=== PATIENT | female | born 1995 | race Caucasian/White ===

== ENCOUNTER → 2017-10-02 15:24 | Observation (INO) ==
--- NOTE | 2017-10-02 11:30 | OB/GYN History & Physical ---
Date of Encounter: 10/02/17 Time of Encounter: 11:15 Assessment and Plan (1) 38 weeks gestation of Current visit: Yes Status: Acute Patient has a sick person in her house that has been confirmed to have the flu. - Rapid flu test. (2) Chest pain Current visit: Yes Status: Acute Patient has been c/o atypical chest pain symptoms throughout her . She denies any pain right now. Since her chest pain seems to come about when she lies on her side and is relieved by sitting up, it is most likely related to GERD. She also had reproducible chest pain with palpation which could also suggest pain that is muscular in origin as well. Qualifiers: Chest pain type: unspecified Qualified Code(s): R07.9 - Chest pain, unspecified (3) Elevated blood pressure affecting in third trimester, antepartum Current visit: Yes Status: Acute Elevated BP at clinic (152/102 and at triage (162/83). - NST assessment. - Reevaluate BP after 4 hours. - Urine protein/creatinine. - CBC - Liver enzymes - Uric acid - UDS Lab work and BPs reviewed with Dr. Linda. Patient to be discharged home and follow up in office next weeks as scheduled. Patient given PIH precautions. History of Present Illness Chief complaint: Elevated BP HPI: Ms. Soni is a 22 year old female at 38 2/7 weeks gestation that presents for PIH evaluation. Patient was seen at the clinic earlier today and had an elevated BP of 152/102. She currently denies any BLUE but says that she had one earlier this morning that was relieved with tylenol. She currently denies any vision changes but says that she has been getting blurry vision intermittently for the past few months. She admits to irregular contractions last night, but denies any regular ones. Admits to good movement. She says that she has been getting intermittent chest pain as well that last a minute, sharp in nature , doesn't radiate, brought about by lying on her side, and is relieved when she sits up. She denies any vaginal fluid leakage or bleeding. She says that she had a fever yesterday, but denies a fever today. Her daughter at home was tested positive for the flu. She was nauseous and vomiting last night. She denies any dysuria or diarrhea. GBS: negative HIV Ag/Ab: non-reactive T. Pallidum Ab: negative Rubella Ab: positive Varicella Ab: positive HepBSAg: non-reactive Blood Type: A- Obstetrical History - Pregnancies : 2 Para: 1 Term: 1 : 0 Ab's: 0 Livin Medications and Allergies Albuterol Sulfate [Ventolin Hfa] 2 aerosol AER BID 10/02/17 [History] Budesonide/Formoterol 80/4.5 [Symbicort 80/4.5] 1 puff AER BID 10/02/17 [ History] Vit Calc,Iron,Folic [ Vitamins] 1 tab PO DAILY 10/02/17 [ History] 3 Allergy/AdvReac Type Severity Reaction Status Date / Time No Known Allergies Allergy Verified 10/02/17 12:16 Exam - Vital Signs Vital signs: BP: 162/83 HR: 88 FHR: 140 [place]: 66 - Constitutional Constitutional: well developed, well nourished, no acute distress, obese - Lungs Respiratory exam: CTAB - Cardiovascular Cardiovascular exam: RRR, +S1, +S2 - Abdomen Abdomen: Present: bowel sounds normal, gravid, non tender - Extremities Extremities exam: full ROM, normal capillary refill, normal inspection, radial pulses palpable and symmetrical Deep Tendon Reflex Grade: 2+ Normal - Comments Comments: Lower extremities: no pitting edema noting lower extremities bilaterally. Chest: reproducible chest pain on palpation. Results Result Diagrams: 10/02/17 11:35 10/02/17 11:35 All other labs normal. - VTE Reasons for not Prescribing Prophylaxis: Treatment not Indicated - Low risk for VTE - Attending Attestation I examined this patient and my medical decision-making was reviewed with the Resident Physician. I agree with the documented findings, disposition and treatment plan as described except to the extent set forth below. CAROLYNN Larry
[2017-10-02 11:50] LABS: Basophils % 0.2 %; Eosinophils # 0.1 K/mcL (0.0-0.6); Eosinophils % 0.5 %; Hematocrit 36.9 % (35.3-44.9); Hemoglobin 12.3 g/dL (11.5-15.4); Immature Granulocytes % 0.8 % (0-4); Lymphocytes # 0.8 K/mcL (0.6-4.6); Lymphocytes % 7.9 %; Mean Corpuscular HGB Conc 33.3 g/dL (31.6-35.5); Mean Corpuscular Hemoglobin 30.3 pg (28.0-33.3); Mean Corpuscular Volume 90.9 fL (83.0-100.0); Mean Platelet Volume 9.6 fL (9.4-12.4); Monocytes # 0.7 K/mcL (0.0-1.3); Monocytes % 6.8 %; Neutrophils # 8.5 K/mcL (1.6-8.9); Platelet Count 260 K/mcL (140-400); Red Blood Count 4.06 M/mcL (3.82-4.97); Red Cell Distribution Width 14.4 % (11.5-14.5); Segmented Neutrophils % 83.8 %
[2017-10-02 12:00] LABS: Alanine Aminotransferase 18 Units/L (0-55); Aspartate Amino Transferase 27 Units/L (5-34); BUN/Creatinine Ratio 17 (6-26); Blood Urea Nitrogen 9 mg/dL (7-20); Uric Acid 5.9 mg/dL (2.6-6.0); eGFR For African Americans > 60 (> 60); eGFR For Non-African Americans > 60 (> 60)
[2017-10-02 12:01] LABS: Lactate Dehydrogenase 258 Units/L (159-327)
[2017-10-02 12:25] LABS: Amphetamine Screen,Urine Negative ng/mL (Cutoff=1000); Barbiturate Screen,Urine Negative ng/mL (Cutoff=200); Benzodiazepines Screen,Urine Negative ng/mL (Cutoff=200); Cannabinoid Screen,Urine Negative ng/mL (Cutoff = 50); Cocaine Screen,Urine Negative ng/mL (Cutoff= 300); Opiate Screen,Urine Negative ng/mL (Cutoff=300); Phencyclidine Screen,Urine Negative ng/mL (Cutoff=25)
[2017-10-02 12:27] LABS: Protein/Creatinine Ratio,Urine 0.3 mg/mg (0-0.20)
--- NOTE | 2017-10-02 15:13 | Discharge Summary ---
Date of Encounter: 10/02/17 Time of Encounter: 15:13 - Discharge Diagnosis (1) 38 weeks gestation of Priority: Primary Status: Acute Comments: admitted for observation (2) Chest pain Priority: Secondary Status: Acute Qualifiers: Chest pain type: unspecified Qualified Code(s): R07.9 - Chest pain, unspecified (3) Elevated blood pressure affecting in third trimester, antepartum Priority: Secondary Status: Acute Comments: PIH labs WNL BPs WNL - Discharge Medications Home Medications: Albuterol Sulfate [Ventolin Hfa] 2 aerosol AER BID 10/02/17 [History] Budesonide/Formoterol 80/4.5 [Symbicort 80/4.5] 1 puff AER BID 10/02/17 [ History] Vit Calc,Iron,Folic [ Vitamins] 1 tab PO DAILY 10/02/17 [ History] Allergies/Adverse Reactions: 3 Allergy/AdvReac Type Severity Reaction Status Date / Time No Known Allergies Allergy Verified 10/02/17 12:16 Data Procedures and tests throughout hospitalization: Laboratory Tests 10/02/17 10/02/17 10/02/17 11:35 11:35 11:35 WBC 10.2 RBC 4.06 Hgb 12.3 Hct 36.9 MCV 90.9 MCH 30.3 MCHC 33.3 RDW 14.4 Plt Count 260 MPV 9.6 Immature Gran % 0.8 Seg Neutrophils % 83.8 Lymphocytes % 7.9 Monocytes % 6.8 Eosinophils % 0.5 Basophils % 0.2 Neutrophils # 8.5 Lymphocytes # 0.8 Monocytes # 0.7 Eosinophils # 0.1 Basophils # 0.0 BUN 9 Creatinine 0.54 L Est GFR ( Amer) > 60 Est GFR (Non-Af Amer) > 60 BUN/Creatinine Ratio 17 Uric Acid 5.9 AST 27 ALT 18 Lactate Dehydrogenase 258 Urine Creatinine Protein/Creatinin Ratio Urine Total Protein Urine Opiates Screen Negative Ur Barbiturates Screen Negative Ur Phencyclidine Scrn Negative Ur Amphetamines Screen Negative U Benzodiazepines Scrn Negative Urine Cocaine Screen Negative U Marijuana (THC) Screen Negative 10/02/17 11:35 WBC RBC Hgb Hct MCV MCH MCHC RDW Plt Count MPV Immature Gran % Seg Neutrophils % Lymphocytes % Monocytes % Eosinophils % Basophils % Neutrophils # Lymphocytes # Monocytes # Eosinophils # Basophils # BUN Creatinine Est GFR ( Amer) Est GFR (Non-Af Amer) BUN/Creatinine Ratio Uric Acid AST ALT Lactate Dehydrogenase Urine Creatinine 67 Protein/Creatinin Ratio 0.30 H Urine Total Protein 20 H Urine Opiates Screen Ur Barbiturates Screen Ur Phencyclidine Scrn Ur Amphetamines Screen U Benzodiazepines Scrn Urine Cocaine Screen U Marijuana (THC) Screen Labs on day of discharge: Labs from last 24 hours 10/02/17 10/02/17 10/02/17 11:35 11:35 11:35 WBC 10.2 RBC 4.06 Hgb 12.3 Hct 36.9 MCV 90.9 MCH 30.3 MCHC 33.3 RDW 14.4 Plt Count 260 MPV 9.6 Immature Gran % 0.8 Seg Neutrophils % 83.8 Lymphocytes % 7.9 Monocytes % 6.8 Eosinophils % 0.5 Basophils % 0.2 Neutrophils # 8.5 Lymphocytes # 0.8 Monocytes # 0.7 Eosinophils # 0.1 Basophils # 0.0 BUN 9 Creatinine 0.54 L Est GFR ( Amer) > 60 Est GFR (Non-Af Amer) > 60 BUN/Creatinine Ratio 17 Uric Acid 5.9 AST 27 ALT 18 Lactate Dehydrogenase 258 Urine Creatinine 67 Protein/Creatinin Ratio 0.30 H Urine Total Protein 20 H Urine Opiates Screen Ur Barbiturates Screen Ur Phencyclidine Scrn Ur Amphetamines Screen U Benzodiazepines Scrn Urine Cocaine Screen U Marijuana (THC) Screen 10/02/17 11:35 WBC RBC Hgb Hct MCV MCH MCHC RDW Plt Count MPV Immature Gran % Seg Neutrophils % Lymphocytes % Monocytes % Eosinophils % Basophils % Neutrophils # Lymphocytes # Monocytes # Eosinophils # Basophils # BUN Creatinine Est GFR ( Amer) Est GFR (Non-Af Amer) BUN/Creatinine Ratio Uric Acid AST ALT Lactate Dehydrogenase Urine Creatinine Protein/Creatinin Ratio Urine Total Protein Urine Opiates Screen Negative Ur Barbiturates Screen Negative Ur Phencyclidine Scrn Negative Ur Amphetamines Screen Negative U Benzodiazepines Scrn Negative Urine Cocaine Screen Negative U Marijuana (THC) Screen Negative Date of admission: 10/02/17 10:48 Discharging clinician: Salma Rojo Anticipated date of discharge: 10/02/17 - Patient Status Disposition: Home, Self-Care Condition: Good Functional capacity at discharge: independent ambulation - Discharge Instructions Follow Up With: Katja Moreira CNM [Advanced Practice Nurse] - - Diet and Activity Activity: increase activity as tolerated Diet: regular diet Hospital Course [employer] Time Attestation: Total time spent providing and/or coordinating discharge services: Time Spent: Less than 30 minutes Exam - Constitutional General appearance IM: A&O X 3, pleasant, answers questions appropriately - Other Additional findings: FHR 125 BPM moderate variability +15x15 accels no decels noted. Cat. 1 tracing. Irregular contractions noted. SBE /-3 - VTE Reasons for not Prescribing Prophylaxis: Treatment not Indicated - Low risk for VTE
== END | disposition home or self-care (01) ==
LOC: 1NENULAB
PROVIDERS: ADMIT Advanced Practice Midwife; ATTEND Advanced Practice Midwife

== ENCOUNTER 2017-10-07 23:30 | Inpatient (IN) ==
[2017-10-07 21:10] LABS: Amphetamine Screen,Urine Negative ng/mL (Cutoff=1000); Barbiturate Screen,Urine Negative ng/mL (Cutoff=200); Benzodiazepines Screen,Urine Negative ng/mL (Cutoff=200); Cannabinoid Screen,Urine Negative ng/mL (Cutoff = 50); Cocaine Screen,Urine Negative ng/mL (Cutoff= 300); Opiate Screen,Urine Negative ng/mL (Cutoff=300); Phencyclidine Screen,Urine Negative ng/mL (Cutoff=25)
[2017-10-07 21:15] LABS: Basophils % 0.3 %; Eosinophils # 0.1 K/mcL (0.0-0.6); Eosinophils % 1.2 %; Hematocrit 38.8 % (35.3-44.9); Hemoglobin 12.9 g/dL (11.5-15.4); Immature Granulocytes % 0.7 % (0-4); Lymphocytes # 2.2 K/mcL (0.6-4.6); Lymphocytes % 21.6 %; Mean Corpuscular HGB Conc 33.2 g/dL (31.6-35.5); Mean Corpuscular Hemoglobin 30.4 pg (28.0-33.3); Mean Corpuscular Volume 91.3 fL (83.0-100.0); Mean Platelet Volume 9.7 fL (9.4-12.4); Monocytes % 9.6 %; Neutrophils # 6.8 K/mcL (1.6-8.9); Platelet Count 325 K/mcL (140-400); Red Blood Count 4.25 M/mcL (3.82-4.97); Red Cell Distribution Width 13.5 % (11.5-14.5); Segmented Neutrophils % 66.6 %
[2017-10-07 21:28] LABS: Alanine Aminotransferase 23 Units/L (0-55); Aspartate Amino Transferase 24 Units/L (5-34); BUN/Creatinine Ratio 14 (6-26); Blood Urea Nitrogen 8 mg/dL (7-20); Lactate Dehydrogenase 224 Units/L (159-327); eGFR For African Americans > 60 (> 60); eGFR For Non-African Americans > 60 (> 60)
[2017-10-07 21:36] LABS: Bilirubin,Urine Negative (Negative); Blood,Urine Small (Negative); Clarity,Urine Clear (Clear); Color,Urine Yellow (Yellow); Glucose,Urine (UA) Normal (Normal); Ketones,Urine Negative (Negative); Leukocyte Esterase,Urine Negative (Negative); Nitrite,Urine Negative (Negative); Protein,Urine Negative (Neg-Trace); Specific Gravity,Urine 1.013 (1.010-1.025); Urobilinogen,Urine Normal (Normal)
[2017-10-07 21:37] LABS: Bacteria,Urine None Seen per hpf (None-Few); Hyaline Casts,Urine None Seen per lpf (None-Few); RBC,Urine 0-3 per hpf (0-3); Squamous Epithelial Cell,Urine Many per lpf (None-Few); WBC,Urine 0-3 per hpf (0-3)
[2017-10-07 22:14] LABS: Protein/Creatinine Ratio,Urine 0.26 mg/mg (0-0.20)
[~2017-10-07 23:30] MED LIST: *HR* Nalbuphine 20 MG/ML AMPUL IVP PRN; Famotidine 20 MG/2 ML VIAL IVP PRN; Naloxone 0.4 MG/ML INJ IVP PRN; Ondansetron 4 MG/2 ML VIAL IVP PRN; Ringers Solution, Lactated 1,000 ML IVC SCH
--- NOTE | 2017-10-07 23:53 | OB/GYN History & Physical ---
Date of Encounter: 10/08/17 Time of Encounter: 23:40 Assessment and Plan (1) 39 weeks gestation of Current visit: Yes Status: Acute Patient 3cm dilated upon presentation for PIH evaluation, 5cm at next cervical exam. -PIH labs WNL -Admit to Labor and Delivery -Epidural consultation -[place] -Anticipate History of Present Illness Chief complaint: Contractions HPI: Ms. Soni is a 22 year old female at 39 weeks presents to [facility] after taking blood pressure in [facility]. Patient reports blood pressures in the 160s over 90s. Upon presentation to labor and delivery, patient's PIH evaluation was found to be within normal limits. Patient was actively omer producing cervical changes. At that time, the decision was made to admit patient to labor and delivery. Patient denies any vaginal bleeding or fluid leaking. She denies any headaches, visual disturbance , or epigastric pain. She denies any nausea or vomiting. She does report painful contractions. Patient's has been complicated by chronic headaches for which she took [id number] magnesium. GBS negative A NEGATIVE/antibody screen negative HepB surface antigen HIV negative Treponema Pallidum Rubella Immune Varicella Immune Past Med Surg Social Fam HX - Past Medical History Attestation: Yes The following information was validated with the patient. Source: patient Medical history: asthma Psychiatric history: no psych history - Past Surgical History Surgical History: no surgical history - Social History Smoking Status: Never smoker Smokeless Tobacco Status: No Alcohol use: none Drug use: none - Family History Mother Adopted: No Living Status: Still Living Hx Family Cardiac Disorders: No Hx Family Respiratory Disorders: No Hx Family Cancer: No Hx Family GI Disorders: No Hx Family Genitourinary Disorders: No Hx Family Endocrine Disorder: No Hx Family Musculoskeletal Disorders: No Hx Family Neuromuscular Disorders: No Hx Family Neurologic Disorders: No Hx Family HEENT Disorders: No Hx Family Autoimmune Disorders: No Hx Family Reproductive Disorders: No Hx Family Psychosocial Disorders: No Hx Family Medical Disorders: No Obstetrical History - Pregnancies : 2 Para: 1 Term: 1 : 0 Ab's: 0 Livin Medications and Allergies Albuterol Sulfate [Ventolin Hfa] 2 aerosol AER BID 10/02/17 [History] Budesonide/Formoterol 80/4.5 [Symbicort 80/4.5] 1 puff AER BID 10/02/17 [ History] Vit Calc,Iron,Folic [ Vitamins] 1 tab PO DAILY 10/02/17 [ History] 3 Allergy/AdvReac Type Severity Reaction Status Date / Time No Known Allergies Allergy Verified 10/02/17 12:16 Review of System OB All systems PM: reviewed and no additional remarkable complaints except as stated - Cardiovascular Cardiovascular: no chest pain, no edema - Respiratory Respiratory: no cough, no dyspnea - Gastrointestinal Gastrointestinal: no abdominal pain - Genitourinary Genitourinary: no urinary urgency - Neurological Nerological: headache(s) Exam - Constitutional Constitutional: well developed, well nourished, no acute distress - HEENT HEENT: Normocephaly, Mucus Membranes Moist - Lungs Respiratory exam: CTAB - Cardiovascular Cardiovascular exam: RRR, +S1, +S2 - Abdomen Abdomen: Present: bowel sounds normal, non tender - Extremities Extremities exam: normal inspection, radial pulses palpable and symmetrical Deep Tendon Reflex Grade: 2+ Normal - Cervix Dilation: 5 Effacement: 70 Station: -1 - Uterus Uterus exam: Present: normal size - Comments Comments: FHT 130 bpm, moderate variability, 15x15 accelerations Results Result Diagrams: 10/07/17 21:00 10/07/17 21:00 Abnormal lab results Urine Blood Small (Negative) H 10/07/17 21:30 Ur Squamous Epith Cells Many per lpf (None-Few) H 10/07/17 21:30 Protein/Creatinin Ratio 0.26 mg/mg (0-0.20) H 10/07/17 20:30 All other labs normal. - VTE Reasons for not Prescribing Prophylaxis: Treatment not Indicated - Low risk for VTE - Attending Attestation I examined this patient and my medical decision-making was reviewed with the Resident Physician. I agree with the documented findings, disposition and treatment plan as described. Theresa Moreira CNM
[2017-10-08] MEDS ORDERED: *HR* Ropivacaine/PF 0.2% 10 ML AMPUL EP ONE (00:35)
[2017-10-08] MEDS ORDERED: Ringers Solution, Lactated 500 ML IVC ONE (00:35)
[2017-10-08] MEDS ORDERED: EPHEDrine 50 MG/ML VIAL IVP PRN (00:35)
--- NOTE | 2017-10-08 00:37 | Anesthesia Evaluation PreOp ---
Date of Encounter: 10/08/17 Time of Encounter: 00:30 - Past History Planned Operation: KATARZYNA Cardiac History: Denies any Significant Hx Pulmonary History: Asthma [employer]UTIONS ARCHITECT CONSULTANT History: Denies Any Significant HX Other Medical History: Denies Any Significant HX Anesthesia History: No Prior Anesthetic Complications, Past Anesthesia : Yes Alcohol Use: none Drug use: none Medications and Allergies Albuterol Sulfate [Ventolin Hfa] 2 aerosol AER BID 10/02/17 [History] Budesonide/Formoterol 80/4.5 [Symbicort 80/4.5] 1 puff AER BID 10/02/17 [ History] Vit Calc,Iron,Folic [ Vitamins] 1 tab PO DAILY 10/02/17 [ History] 3 Allergy/AdvReac Type Severity Reaction Status Date / Time No Known Allergies Allergy Verified 10/02/17 12:16 - Meds/Allergy Pre-op Review Medications Reviewed: Yes Allergies Reviewed: Yes Beta Blockers on Current Med List: No Anesthesia Results - Labs 10/07/17 21:00 10/07/17 21:00 Anesthesia Exam Height: 1.6m Weight: 98.4kg NPO (# of Hours): >6hr Pain Scale: 9 Pain Scale Used: Numeric (1 - 10) - HEENT Pupil (Motor): Pupils equal Mallampati: II Teeth: Missing Oral Opening: Greater than 3 - SOLUTIONS ARCHITECT CONSULTANT LOC: Oriented [employer]UTIONS ARCHITECT CONSULTANT Motor: Normal RUE, Normal LUE, Normal RLE, Normal LLE, Normal Face [employer] ARCHITECT CONSULTANT Sensory: Normal: RUE, LUE, RLE, LLE, Face - Cardiac Rhythm: Regular Murmur: None - Pulmonary Breath Sounds: bilateral Clear Respiratory Effort: Symmetrical Anesthesia Assess/Plan ASA Score: 2 Modified [place] Scale for Level of Consciousness: Cooperative, oriented, and tranquil Anesthetic Plan: Regional Monitoring Plan: Standard Monitors Recovery Plan: Other
[2017-10-08] MEDS ORDERED: *HR* Ropivacaine/PF 0.2% 10 ML AMPUL ONE (00:38)
[2017-10-08] MEDS ORDERED: Epidural Premix (fent/bupiv) 110 ML EP ONE ×2 (00:38→07:38)
[2017-10-08] MEDS ORDERED: Epidural Premix (fent/bupiv) 110 ML EP SCH (00:45)
--- NOTE | 2017-10-08 01:02 | Anesthesia Procedures ---
Date of Encounter: 10/08/17 Time of Encounter: 00:41 Procedures: Anesthesia - Epidural/Spinal Patient ID/Chart reviewed: Yes Patient examined: Yes OB Eval: : 2 OB Eval: Hx Para: 1 OB Eval: Dilated at (cm): 4 OB Eval: Contractions: Non-stressed pattern Consent Obtained: Yes Supplemental Oxygen: None/Room Air Site Prep: Aseptic Technique, Sterile prep and drape, 0.5% Chlorhexidine/Alcohol Patient position: upright Local Anesthetic: Lidocaine 1% Amount of Local Anesthetic used: 2 Touhy Needle Gauge: 18 Touhy Needle Depth (cm): 7 Catheter Depth at Skin (cm): 15 Test Dose (1.5% Lido + Epi): Volume given (mls): 3 Test Dose Result: Negative Loading Dose: Other: Ropivacaine 0.2% 9mL Loading Dose Administered: Thru Catheter Infusion Med: 0.125% Bupivacaine w/ 2 mcg/ml Fentanyl Infusion Rate (mls/hr): 14 (Bolus 5mL q15min;max 3/hr) Catheter Secured in Place: Tegaderm Interspace Used: L3-L4 Loss of Resistance (SHIRA): Yes Blood: No CSF: No Paresthesia: No Procedure: x1 attempt. Patient tolerated well. Vitals + FHT's: FHR and VSS throughout. See nursing documentation.
--- NOTE | 2017-10-08 02:51 | OB Labor Progress Note ---
Date of Encounter: 10/08/17 Time of Encounter: 02:49 Labor Progress Note - Subjective Subjective: Patient resting comfortably in bed with epidural in place. - Vital Signs Vital Signs: VSS; occasional increased blood pressure. Aymptomatic. PIH labs WNL - Cervix Cervix: 7-8/80/0 - Heart Tones Heart Tones: 140's category I tracing - [place]: Contractions every 2-4 minutes - Interventions Interventions: AROM for scant amount of light meconium stained fluid - Plan Plan: Continue routine labor management Pain is well controlled GBS negative Consider pitocin if needed for adequate contraction pattern or if not making cervical change Anticipate vaginal delivery POC per consult with Dr Craig
[2017-10-08] MEDS ORDERED: Oxytocin 20 units/ LR 1000 mL 20 UNIT/1,000 ML BAG IVC SCH ×2 (09:30→12:49)
--- NOTE | 2017-10-08 10:38 | OB/GYN Procedure Note ---
Delivery - Delivery Date: 10/08/17 Provider: Katja Moreira Intrapartum events: none Delivery induction: none Delivery augmentation: rupture of membranes, pitocin Delivery monitor: external FHT, external uterine, internal uterine Anesthesia: epidural Estimated Blood Loss: 100 - (s) A Infant Delivery Date: 10/08/17 Infant Delivery Time: 10:10 Presentation: vertex, compound (compound hand) Position: WILMER Route of delivery: Gender: Female Viability: Viable Pounds: 6 Ounces: 13 Weight Gram: 3090 kg at 1 minute: 8 at 5 mins: 9 Shoulder Dystocia: not encountered Specimens collected: cord blood Placenta: spontaneous Cord: 2 umbilical vessels - Repair Episiotomy: none Laceration Description: Superficial - Complications Delivery complications: meconium Delivery comments: Patient complete and began coached pushing to of viable, vigorous female infant in the WILMER position with a compound hand. Light stained meconium fluid noted at AROM, respiratory and nursery present for delivery. No shoulder dystocia, and no nuchal cord encountered. Infant placed on maternal abdomen and assessed by nursery. Apgars 8 and 9 at one and five minutes of age respectively. Cord double clamped and cut when pulsations ceased. Placenta delivered spontaneously and grossly intact with 2 vessel cord. Upon perineal inspection, several superficial abrasions noted - all hemostatic and left to heal by second intention. Perineal care instructions verbalized to mother. EBL 100mL. Mother and infant stable in recovery in kangaroo care. Dr Linda notified of delivery. - Disposition Mom disposition: stable in LDR [place] disposition: stable in LDR
[2017-10-08] MEDS ORDERED: Oxytocin 20 units/ LR 1000 mL 20 UNIT/1,000 ML BAG IVC ONE ×2 (12:49→12:51)
[2017-10-08] MEDS ORDERED: Benzocaine/Menthol 56 GM AEROSOL SPRAY TP PRN (12:49)
[2017-10-08] MEDS ORDERED: Sennosides 8.6 MG TABLET PO PRN (12:49)
[2017-10-08] MEDS ORDERED: Measles/Mumps/Rubella Vacc 0.5 ML VIAL SQ PRN (12:49)
[2017-10-08] MEDS ORDERED: Acetaminophen 325 MG TABLET PO PRN (12:49)
[2017-10-08] MEDS ORDERED: Rho Immune Globulin 1,500 UNIT SYRINGE IM PRN (12:49)
[2017-10-08] MEDS ORDERED: Ondansetron 4 MG/2 ML VIAL IVP PRN (12:49)
[2017-10-08] MEDS: Ibuprofen 600 MG TABLET PO PRN ×3 (13:23→22:41)
[2017-10-08] MEDS ORDERED: Lanolin 7 G OINT...G. TP PRN (17:25)
[2017-10-08] MEDS: Budesonide/Formoterol 80/4.5 MDI IH SCH (21:37)
--- NOTE | 2017-10-09 08:44 | Discharge Summary ---
Date of Encounter: 10/09/17 Time of Encounter: 08:41 - Discharge Diagnosis (1) Vaginal delivery Priority: Primary Status: Acute Comments: Pt meeting all milestones. She is requesting discharge home today. (2) Elevated blood pressure affecting in third trimester, antepartum Priority: Secondary Status: Acute Comments: BP normal this am. her blood pressures have been 120's-140's/80's-90' s. Pt reports she has chronic headaches but no new symptoms today. She states the headaches have been present through her entire . (3) Breast feeding status of mother Priority: Secondary Status: Acute Comments: Pt reports she has a breastpump for home use. - Discharge Medications Prescriptions: Docusate [Colace] 100 mg PO BID #60 capsule Ibuprofen [Motrin] 600 mg PO Q6H PRN #60 tablet PRN Reason: Cramping Home Medications: Budesonide/Formoterol 80/4.5 [Symbicort 80/4.5] 1 puff AER BID 10/02/17 [ History] Vit Calc,Iron,Folic [ Vitamins] 1 tab PO DAILY 10/02/17 [ History] Albuterol Sulfate [Albuterol Inhaler] 2 puff IH BIDRESP inhaler 10/09/17 [Rx] Benzocaine/Menthol [place] [Dermoplast [place]] 1 appl TP QID PRN aerosol 10/09/17 [Rx] Docusate [Colace] 100 mg PO BID #60 capsule 10/09/17 [Rx] Ibuprofen [Motrin] 600 mg PO Q6H PRN #60 tablet 10/09/17 [Rx] Lanolin [Lansinoh] 1 appl TP TID PRN oint...g. 10/09/17 [Rx] Allergies/Adverse Reactions: 3 Allergy/AdvReac Type Severity Reaction Status Date / Time No Known Allergies Allergy Verified 10/02/17 12:16 Data Procedures and tests throughout hospitalization: Laboratory Tests 10/07/17 10/07/17 10/07/17 20:30 20:30 21:00 WBC 10.2 RBC 4.25 Hgb 12.9 Hct 38.8 MCV 91.3 MCH 30.4 MCHC 33.2 RDW 13.5 Plt Count 325 MPV 9.7 Immature Gran % 0.7 Seg Neutrophils % 66.6 Lymphocytes % 21.6 Monocytes % 9.6 Eosinophils % 1.2 Basophils % 0.3 Neutrophils # 6.8 Lymphocytes # 2.2 Monocytes # 1.0 Eosinophils # 0.1 Basophils # 0.0 BUN Creatinine Est GFR ( Amer) Est GFR (Non-Af Amer) BUN/Creatinine Ratio Uric Acid AST ALT Lactate Dehydrogenase Urine Color Urine Clarity Urine pH Ur Specific Gregory Urine Protein Urine Glucose (UA) Urine Ketones Urine Blood Urine Nitrite Urine Bilirubin Urine Urobilinogen Ur Leukocyte Esterase Urine Microscopic RBC Urine Microscopic WBC Ur Squamous Epith Cells Urine Bacteria Hyaline Casts Ur Culture Indicated? Urine Creatinine 27 Protein/Creatinin Ratio 0.26 H Urine Total Protein 7 Urine Opiates Screen Negative Ur Barbiturates Screen Negative Ur Phencyclidine Scrn Negative Ur Amphetamines Screen Negative U Benzodiazepines Scrn Negative Urine Cocaine Screen Negative U Marijuana (THC) Screen Negative Baby's Blood Type Mother's Blood Type Rhogam Indicated 10/07/17 10/07/17 10/08/17 21:00 21:30 10:52 WBC RBC Hgb Hct MCV MCH MCHC RDW Plt Count MPV Immature Gran % Seg Neutrophils % Lymphocytes % Monocytes % Eosinophils % Basophils % Neutrophils # Lymphocytes # Monocytes # Eosinophils # Basophils # BUN 8 Creatinine 0.58 Est GFR ( Amer) > 60 Est GFR (Non-Af Amer) > 60 BUN/Creatinine Ratio 14 Uric Acid 5.0 AST 24 ALT 23 Lactate Dehydrogenase 224 Urine Color Yellow Urine Clarity Clear Urine pH 7.0 Ur Specific Gregory 1.013 Urine Protein Negative Urine Glucose (UA) Normal Urine Ketones Negative Urine Blood Small H Urine Nitrite Negative Urine Bilirubin Negative Urine Urobilinogen Normal Ur Leukocyte Esterase Negative Urine Microscopic RBC 0-3 Urine Microscopic WBC 0-3 Ur Squamous Epith Cells Many H Urine Bacteria None Seen Hyaline Casts None Seen Ur Culture Indicated? NO Urine Creatinine Protein/Creatinin Ratio Urine Total Protein Urine Opiates Screen Ur Barbiturates Screen Ur Phencyclidine Scrn Ur Amphetamines Screen U Benzodiazepines Scrn Urine Cocaine Screen U Marijuana (THC) Screen Baby's Blood Type A RH NEGATIVE Mother's Blood Type A RH NEGATIVE Rhogam Indicated NO Labs on day of discharge: Labs from last 24 hours 10/08/17 10:52 Baby's Blood Type A RH NEGATIVE Mother's Blood Type A RH NEGATIVE Rhogam Indicated NO Date of admission: 10/07/17 23:30 Primary care physician: PCP NONE Consults: 10/08/17 12:49 Consult to Gyroscope Technician [CONS] Routine Comment: Vaginal delivery, consult needed Discharging clinician: Coretta Cosby Anticipated date of discharge: 10/09/17 - Patient Status Disposition: Home, Self-Care Condition: Good Functional capacity at discharge: independent ambulation Overall status at discharge: patient is progressing back to baseline - Discharge Instructions Follow Up With: NONE,PCP [Primary Care Provider] - Katja Moreira, CNM [Advanced Practice Nurse] - - Diet and Activity Diet: regular diet Hospital Course Reason for admission: active labor Delivery: Episiotomy: none Laceration: other (superficial, no repair) Other procedures: none complications: none Discharge diagnosis: IUP at term delivered baby: female Hospital course: - Delivery Date: 10/08/17 Provider: Katja Moreira Intrapartum events: none Delivery induction: none Delivery augmentation: rupture of membranes, pitocin Delivery monitor: external FHT, external uterine, internal uterine Anesthesia: epidural Estimated Blood Loss: 100 - Infant (s) Infant A Delivery Date: 10/08/17 Infant Delivery Time: 10:10 Presentation: vertex, compound (compound hand) Position: WILMER Route of delivery: Gender: Female Viability: Viable Pounds: 6 Ounces: 13 Weight Gram: 3090 kg at 1 minute: 8 at 5 mins: 9 Shoulder Dystocia: not encountered Specimens collected: cord blood Placenta: spontaneous Cord: 2 umbilical vessels - Repair Episiotomy: none Laceration Description: Superficial - Complications Delivery complications: meconium - Disposition Mom disposition: home PPD#1 disposition: home with mother, Time Attestation: Total time spent providing and/or coordinating discharge services: Time Spent: Less than 30 minutes Exam - Constitutional Vitals: Temp Pulse Resp BP Pulse Ox 98.0 F 109 16 123/82 98 10/09/17 07:30 10/09/17 07:30 10/09/17 07:30 10/09/17 07:30 10/09/17 03:40 General appearance IM: A&O X 3 - Respiratory Respiratory exam: Present: CTAB - Cardiovascular Cardiovascular exam IM: Present: RRR, +S1, +S2 - Uterine Tone: Firm Uterus Position: 1 Finger Below Umbilicus - Extremities Exam Extremities exam IM: Present: normal inspection, pedal edema (1+ bilaterally) - Neurological Exam Neurological exam: normal gait, oriented X3 - Psychiatric Additional comments: reports good mood - Other Additional findings: Pt declines contraception at this time. She plans to use condoms.
[2017-10-09] MEDS ORDERED: Prenatal Vit/FA 1 EACH TABLET PO SCH (09:00)
[2017-10-09] MEDS: Budesonide/Formoterol 80/4.5 MDI IH SCH (09:34)
[2017-10-09] MEDS: Ibuprofen 600 MG TABLET PO PRN (09:34)
[2017-10-09 11:42] VITALS: BP 108/70
== END 2017-10-09 14:02 | disposition home or self-care (01) | DRG 560 ==
LOC: 1NENULAB → 1NENUOBS 10-08 12:48
PROVIDERS: ADMIT Advanced Practice Midwife; ATTEND Advanced Practice Midwife